=== PATIENT | female | born 1965 | race Caucasian/White ===

== ENCOUNTER 2024-05-14 13:18 | Emergency (ER) | payer OTHER ==
[2024-05-14] MEDS ORDERED: FENTANYL CITR 100 MCG/2 ML ONE ×2 (13:51→15:21)
[2024-05-14 14:02] LABS: Absolute Lymphocytes (CBC) 1.1 K/uL (0.7-4.9); Absolute Monocytes 0.3 K/uL (0.1-1.3); Absolute Neutrophil 5.5 K/uL (1.8-8.0); Basophils % 0.5 % (0-1.3); Eosinophils % 0.6 % (0-4.4); Hematocrit 41.2 % (36.0-45.0); Hemoglobin 13.9 g/dL (12.0-15.0); Lymphocytes % 16.3 % (15.3-44.8); MCH 31.9 pg (27.0-35.0); MCHC 33.7 g/dL (32.0-36.0); MCV 94.7 fL (80-100); MPV 7.6 fL (7.6-11.3); Monocytes % 4.2 % (3.3-12.3); Neutrophils % 78.4 % (41.7-73.7); Nucleated Red Blood Cells % 0.1 % (0-0); Platelets 268 thou/uL (152-406); RBC Red Blood Cell Count 4.35 M/uL (3.86-4.86); Red Cell Distribution Width 13.9 % (12.1-15.2)
[2024-05-14 14:17] LABS: Anion Gap 7.1 mEq/L (5.0-15.0); Potassium 4.1 mEq/L (3.5-5.1)
--- NOTE | 2024-05-14 15:10 | RAD REPORT ---
EXAM DESCRIPTION: CT - Chest Abdomen Pelvis W Cont - 05/14/2024 2:34 pm CLINICAL HISTORY: Chest and abdominal pain status post fall COMPARISON: none TECHNIQUE: Computed axial tomography of the chest, abdomen and pelvis was obtained. 100 cc Isovue-30 0 was administered intravenously. Oral contrast was not requested. This limits evaluation of bowel. All CT scans are performed using dose optimization technique as appropriate and may include automated exposure control or mA/KV adjustment according to patient size. FINDINGS: A pleural effusion is not present. A pulmonary contusion is not seen. A 7 millimeter noncalcified left lower lobe nodule A mediastinal hematoma is not present. The liver, spleen, pancreas, adrenals kidneys and bladder do not demonstrate a traumatic injury Small hepatic cysts. The duodenal diverticulum. Bilateral renal calculi. No hydronephrosis. Degenerat ezekiel changes pubic symphysis IMPRESSION: No acute traumatic injury involving the chest, abdomen nor pelvis is seen. 7 millimeter left lung nodule. Per Fleischner guidelines CT at 6-12 months, then consider CT at 18-2 4 months
--- NOTE | 2024-05-14 15:40 | ER ---
Nurse's Notes [facility] Name: Tiffanie Edwards Age: 59 yrs Sex: Female : 1965 Arrival Date: 05/14/2024 Time: 13:18 Bed 2 Private MD: Diagnosis: Chest pain, unspecified-right lateral rib pain;Abrasion, left lower leg;Pain in left lower leg;Fall on same level, unspecified Presentation: 05/14 13:26 Chief complaint: Patient states: FELL THROUGH PLANK ON A BOAT DOCK. HURT RIGHT SIDE AND db RIGHT RIBS AND RIGHT LEGS. STATES HURTS TO TAKE A DEEP BREATH. Coronavirus screen: Client denies travel out of the [place] in the last 14 days. At this time, the client does not indicate any symptoms associated with coronavirus-19. Ebola Screen: Patient negative for fever greater than or equal to 101.5 degrees Fahrenheit, and additional compatible Ebola Virus Disease symptoms Patient denies exposure to infectious person. Patient denies travel to an Ebola-affected area in the 21 days before illness onset. No symptoms or risks identified at this time. Initial Sepsis Screen: Does the patient meet any 2 criteria? No. Patient's initial sepsis screen is negative. Does the patient have a suspected source of infection? No. Patient's initial sepsis screen is negative. Risk Assessment: Do you want to hurt yourself or someone else? Patient reports no desire to harm self or others. Onset of symptoms was May 14, 2024. 13:26 Method Of Arrival: Wheelchair db 13:26 Acuity: BETSY 3 db 13:30 Care prior to arrival: None. Mechanism of Injury: Fall from standing position. Trauma db event details: Injury occurred in the [facility]. Triage Assessment: 13:28 General: Appears in no apparent distress. comfortable, Behavior is calm, cooperative. db Pain: Complains of pain in back, abdomen and right leg. Neuro: Level of Consciousness is awake, alert, obeys commands, Oriented to person, place, time, situation. Respiratory: Airway is patent Respiratory effort is even, unlabored, Respiratory pattern is regular, symmetrical. 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 - Infectious Disease History:: Denies. - Immunization history: Last tetanus immunization: > 10 years ago. - Social history:: Smoking status: Patient denies any tobacco usage or history of. Screenin:31 Abuse screen: Denies threats or abuse. Denies injuries from another. Nutritional iw screening: No deficits noted. Tuberculosis screening: No symptoms or risk factors identified. 15:38 [facility] ED Fall Risk Assessment (Adult) History of falling in the last 3 months, ld1 including since admission Yes- single mechanical fall (1 pt) Confusion or Disorientation No (0 pts) Intoxicated or Sedated No (0 pts) Impaired Gait No (0 pts) Mobility Assist Device Used No (0 pt) Altered Elimination No (0 pt) Score/Fall Risk Level 0 - 2 = Low Risk Oriented to surroundings, Maintained a safe environment, Educated pt \T\ family on fall prevention, incl call for assistance when getting out of bed, Assessed \T\ reinforced patient's understanding of fall precautions, Provided non-skid footwear, Hourly rounding (assess needs \T\ fall precautionary measures) done, Used ambulatory aids as needed (educated on \T\ assisted with), Used gait belt as appropriate. Assessment: 14:00 General: Appears uncomfortable, Behavior is cooperative. Pain: Complains of pain in iw right lateral posterior chest, right lateral anterior chest and right breast Pain currently is 10 out of 10 on a pain scale. Neuro: Level of Consciousness is awake, alert, obeys commands, Moves all extremities. Full function. Respiratory: Reports pain with movement pain with respiration Airway is patent Respiratory effort is even, unlabored. Derm: Skin is intact, is healthy with good turgor. 15:38 Reassessment: Patient appears in no apparent distress at this time. No changes from ld1 previously documented assessment. Vital Signs: 13:26 BP 147 / 86; Pulse 86; Resp 18; Temp 98.9(O); Pulse Ox 96% ; Weight 74.84 kg; Height 5 db ft. 4 in. ; 15:38 BP 139 / 78; Pulse 76; Resp 18; Pulse Ox 100% on R/A; ld1 13:26 Body Mass Index 28.32 (74.84 kg, 162.56 cm) db Bruno Coma Score: 13:31 Eye Response: spontaneous(4). Motor Response: obeys commands(6). Verbal Response: db oriented(5). Total: 15. Trauma Score (Adult): 13:31 Eye Response: spontaneous(1); Verbal Response: oriented(1); Motor Response: obeys db commands(2); Systolic BP: > 89 mm Hg(4); Respiratory Rate: 10 to 29 per min(4); [place] Score: 15; Trauma Score: 12 ED Course: 13:21 Patient arrived in ED. im 13:27 Hernan Rubi PA is PHCP. cp 13:27 Orlando Cortez MD is Attending Physician. cp 13:28 Triage completed. db 13:31 Arm band placed on left wrist. db 13:55 Initial lab(s) drawn, by me, sent to lab. Inserted saline lock: 22 gauge in left iw antecubital area, using aseptic technique. Blood collected. 14:02 Basic Metabolic Panel Sent. ld1 14:02 CBC with Diff Sent. ld1 14:02 Type And Screen Sent. ld1 14:31 CT Chest, Abdomen, Pelvis - W/Contrast In Process Unspecified. EDMS 14:52 XRAY Chest (1 view) In Process Unspecified. EDMS 14:52 XRAY Tib Fib LEFT In Process Unspecified. EDMS 15:38 Stephanie Garcia, RN is Primary Nurse. ld1 15:38 Patient has correct armband on for positive identification. Placed in gown. Bed in low ld1 position. Call light in reach. Side rails up X2. youth nutritional monitor on. Pulse ox on. NIBP on. Notified ED physician of. Door closed. Noise minimized. Warm blanket given. 15:38 No provider procedures requiring assistance completed. IV discontinued, intact, ld1 bleeding controlled, No redness/swelling at site. Administered Medications: 14:02 Drug: fentaNYL (PF) IVP 25 mcg IVP once Route: IVP; Site: left antecubital; ld1 15:20 Drug: fentaNYL (PF) IVP 25 mcg IVP once Route: IVP; Site: left antecubital; ld1 15:38 Not Given (Patient Refused): boostrix tdap0.5 ml IM once; as a single dose ld1 Medication: 15:38 VIS not applicable for this client. ld1 Outcome: 15:39 Discharge ordered by MD. cp 15:46 Discharged to home via wheelchair, ld1 15:46 Condition: stable 15:46 Discharge instructions given to patient, family, Instructed on discharge instructions, follow up and referral plans. medication usage, Demonstrated understanding of instructions, follow-up care, medications, Prescriptions given X 2, 15:47 Patient left the ED. ld1 Signatures: Dispatcher [employer] EDElsa Castellanos RN RN iw Hernan Rubi, ROSANNA PA Stephanie Eden RN RN ld1 Brenna Langston RN RN Alisa Horne
--- NOTE | 2024-05-14 15:40 | RAD REPORT ---
EXAM DESCRIPTION: Mark Anthony Single View05/14/2024 2:51 pm CLINICAL HISTORY: sob COMPARISON: CT May 14, 2024 FINDINGS: The lungs appear clear of acute infiltrate. The heart is normal size IMPRESSION: No acute abnormalities displayed The patient's previously described 7 millimeter left lung nodule not clearly seen on this exam. Refer to the CT report for recommendation
--- NOTE | 2024-05-14 15:40 | EDPHYS ---
Physician Documentation [facility] Name: Tiffanie Edwards Age: 59 yrs Sex: Female : 1965 Arrival Date: 05/14/2024 Time: 13:18 Bed 2 Private MD: ED Physician Orlando Cortez HPI: 05/14 13:45 This 59 yrs old Female presents to ER via Wheelchair with complaints of Fall Injury. cp 13:45 Details of fall: The patient fell from an upright position, while walking, and struck wood deck. 13:45 Onset: The symptoms/episode began/occurred today. Associated injuries: The patient cp sustained injury to the chest, specifically the right lateral rib area, pain with breathing, pain with movement, tenderness, right shoulder, painful injury. Patient presents to ED with c/o right side chest and rib pain, right shoulder pain after stepping and falling through loose wooden board of boat deck. 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 - Infectious Disease History:: Denies. - Immunization history: Last tetanus immunization: > 10 years ago. - Social history:: Smoking status: Patient denies any tobacco usage or history of. ROS: 13:50 MS/extremity: Positive for pain, of the right shoulder, abrasion and tenderness to left cp lower leg, Negative for decreased range of motion, deformity, 13:50 Eyes: Negative for injury, pain, redness, and discharge, cp 13:50 Constitutional: Negative for fever, 13:50 Neck: Positive for tenderness, 13:50 Cardiovascular: Positive for right side rib and chest pain, 13:50 Respiratory: Negative for cough, shortness of breath, wheezing, 13:50 Abdomen/GI: Negative for abdominal pain, vomiting, diarrhea, constipation, 13:50 Neuro: Negative for altered mental status, dizziness, headache, loss of consciousness, weakness, 13:50 All other systems are negative, Exam: 13:55 Constitutional: The patient appears in no acute distress, alert, awake, cp non-diaphoretic, non-toxic, well developed, well nourished, uncomfortable, 13:55 Head/Face: Normocephalic, atraumatic. cp 13:55 Eyes: Periorbital structures: appear normal, Conjunctiva: normal, no exudate, no injection, Sclera: no appreciated abnormality, Lids and lashes: appear normal, bilaterally, 13:55 ENT: External ear(s): are unremarkable, Nose: is normal, Mouth: Lips: moist, Oral mucosa: moist, Posterior pharynx: Airway: no evidence of obstruction, patent, 13:55 Neck: C-spine: vertebral tenderness, is not appreciated, crepitus, is not appreciated, ROM/movement: is normal, is supple, without pain, no range of motions limitations, 13:55 Chest/axilla: Inspection: normal, Palpation: crepitus, is not appreciated, tenderness, that is moderate, of the right lateral posterior chest and right lateral anterior chest, 13:55 Cardiovascular: Rate: normal, Rhythm: regular, Edema: is not appreciated, JVD: is not appreciated, 13:55 Respiratory: the patient does not display signs of respiratory distress, Respirations: normal, no use of accessory muscles, no retractions, labored breathing, is not present, Breath sounds: are clear throughout, no decreased breath sounds, no stridor, no wheezing, 13:55 Abdomen/GI: Inspection: abdomen appears normal, Palpation: abdomen is soft and non-tender, 13:55 Back: vertebral tenderness, is not appreciated, 13:55 Musculoskeletal/extremity: Extremities: noted in the left lower leg: abrasion, cp tenderness, There is no evidence of decreased ROM, deformity, ROM: full active range of motion, in the left knee and left ankle, 13:55 Neuro: Orientation: to person, place \T\ time. Mentation: is normal, Motor: moves all fours, strength is normal, Vital Signs: 13:26 BP 147 / 86; Pulse 86; Resp 18; Temp 98.9(O); Pulse Ox 96% ; Weight 74.84 kg; Height 5 db ft. 4 in. ; 15:38 BP 139 / 78; Pulse 76; Resp 18; Pulse Ox 100% on R/A; ld1 13:26 Body Mass Index 28.32 (74.84 kg, 162.56 cm) db Bruno Coma Score: 13:31 Eye Response: spontaneous(4). Motor Response: obeys commands(6). Verbal Response: db oriented(5). Total: 15. Trauma Score (Adult): 13:31 Eye Response: spontaneous(1); Verbal Response: oriented(1); Motor Response: obeys db commands(2); Systolic BP: > 89 mm Hg(4); Respiratory Rate: 10 to 29 per min(4); Bruno Score: 15; Trauma Score: 12 MDM: 13:27 Patient medically screened. 14:00 Differential diagnosis: closed head injury, contusion, fracture, multiple trauma. 15:38 Data reviewed: vital signs, nurses notes, lab test result(s), radiologic studies, CT cp scan, plain films, and as a result, I will discharge patient. 15:38 I considered the following discharge prescriptions or medication management in the emergency department Medications were administered in the Emergency Department. See MAR. Counseling: I had a detailed discussion with the patient and/or guardian regarding the historical points, exam findings, and any diagnostic results supporting the discharge/admit diagnosis, lab results, radiology results, to return to the emergency department if symptoms worsen or persist or if there are any questions or concerns that arise at home. Response to treatment: the patient's symptoms have markedly improved after treatment, and as a result, I will discharge patient. 05/14 13:43 Order name: Basic Metabolic Panel; Complete Time: 14:44 05/14 13:43 Order name: CBC with Diff; Complete Time: 14:44 05/14 13:43 Order name: XRAY Chest (1 view) 05/14 13:43 Order name: CT Chest, Abdomen, Pelvis - W/Contrast; Complete Time: 15:23 05/14 13:43 Order name: XRAY Tib Fib LEFT 05/14 13:43 Order name: Labs collected and sent; Complete Time: 13:55 Administered Medications: 14:02 Drug: fentaNYL (PF) IVP 25 mcg IVP once Route: IVP; Site: left antecubital; ld1 15:20 Drug: fentaNYL (PF) IVP 25 mcg IVP once Route: IVP; Site: left antecubital; ld1 15:38 Not Given (Patient Refused): boostrix tdap0.5 ml IM once; as a single dose ld1 Disposition Summary: 05/14/24 15:39 Discharge Ordered Notes: Location: Home cp Problem: new cp Symptoms: have improved cp Condition: Stable cp Diagnosis - Chest pain, unspecified - right lateral rib pain cp - Abrasion, left lower leg cp - Pain in left lower leg cp - Fall on same level, unspecified cp Followup: cp - With: Private Physician - When: 2 - 3 days - Reason: Recheck today's complaints Discharge Instructions: - Discharge Summary Sheet cp - Rib Contusion cp - Musculoskeletal Pain cp Forms: - Medication Reconciliation Form cp - Antibiotic Education cp - Prescription Opioid Use cp - Patient Portal Instructions cp - Leadership Thank You Letter cp Prescriptions: - Diclofenac Sodium 75 mg Oral tablet, delayed release (enteric coated) - take 1 tablet ORAL route 2 times per day; 20 tablet; Refills: 0, Product cp Selection Permitted - methocarbamol 750 mg Oral tablet - take 1 tablet ORAL route 3 times per day; 30 tablet; Refills: 0, Product cp Selection Permitted Signatures: Dispatcher [employer] EDMS Hernan Rubi PA PA cp Stephanie Garcia RN RN ld1 Brenna Langston RN RN db Corrections: (The following items were deleted from the chart) 13:44 13:44 BASIC METABOLIC PANEL+C.LAB.BRZ ordered. EDMS EDMS 13:44 13:44 CBC+H.LAB.BRZ ordered. EDMS EDMS 13:44 13:44 TYPE AND SCREEN+BB.LAB.BRZ ordered. EDMS EDMS 13:44 13:44 Urinalysis+U.LAB.BRZ ordered. EDMS EDMS 13:44 13:44 Chest Single View+RAD.RAD.BRZ ordered. EDMS EDMS 13:44 13:44 Chest Abdomen Pelvis W Con+CT.RAD.BRZ ordered. EDMS EDMS 13:44 13:44 Tib Fib Left+RAD.RAD.BRZ ordered. EDMS EDMS 05/15 14:19 05/14 13:50 MS/extremity: Positive for pain, of the right shoulder, Negative for cp decreased range of motion, deformity, cp
--- NOTE | 2024-05-14 15:41 | RAD REPORT ---
EXAM DESCRIPTION: Art Taylor Left05/14/2024 2:51 pm CLINICAL HISTORY: Left leg pain status post injury FINDINGS: No fracture is seen
[2024-05-14 16:08] VITALS: BP 139/78; TEMP 98.9; O2SAT 100
== END 2024-05-14 15:47 | disposition home or self-care (01) ==
LOC: ER 13:18
DX: R07.81 Pleurodynia (principal); S80.812A Abrasion, left lower leg, initial encounter; M79.662 Pain in left lower leg; W18.30XA Fall on same level, unspecified, initial encounter; Z88.0 Allergy status to penicillin; Z88.2 Allergy status to sulfonamides
CPT/HCPCS: 85025; 80048; 36415; 71260; 74177; 71045; 73590; Q9967; J3010 ×2